=== PATIENT | female | born 1960 | race Caucasian/White ===

== ENCOUNTER → 2017-03-31 | Outpatient (CLI) | payer BC, OTHER ==
[2017-03-31 17:18] LABS: RED BLOOD COUNT 4.73 M/UL (4.00-5.10); WHITE BLOOD COUNT 6.9 K/UL (4.5-11.0)
[2017-03-31 17:45] LABS: BUN/CREATININE RATIO 19 (0-10)
== END ==
LOC: LAB 16:46
PROVIDERS: Nurse Practitioner Family
DX: Z01.812 Encounter for preprocedural laboratory examination (principal); M25.561 Pain in right knee; M25.562 Pain in left knee; E11.9 Type 2 diabetes mellitus without complications; E03.9 Hypothyroidism, unspecified; E55.9 Vitamin D deficiency, unspecified; M17.0 Bilateral primary osteoarthritis of knee
CPT/HCPCS: 73562; 80053; 84439; 84443; 85025

== ENCOUNTER → 2017-04-09 | Outpatient (CLI) | payer BC, OTHER | LOC: EXRD 13:00 | DX: Z51.11 Encounter for antineoplastic chemotherapy (principal); C50.419 Malignant neoplasm of upper-outer quadrant of unspecified female breast; R52 Pain, unspecified; M85.9 Disorder of bone density and structure, unspecified | CPT/HCPCS: 77080 ==

== ENCOUNTER → 2017-05-07 | Outpatient (CLI) | payer BC, OTHER | LOC: EMI 16:45 | DX: M17.0 Bilateral primary osteoarthritis of knee (principal); M25.561 Pain in right knee; M25.562 Pain in left knee; M95.8 Other specified acquired deformities of musculoskeletal system; M71.22 Synovial cyst of popliteal space [Baker], left knee | CPT/HCPCS: 73721 ==

== ENCOUNTER → 2017-08-03 | Outpatient (CLI) | payer BC ==
[2017-08-03 11:06] LABS: HEMOGLOBIN 13.3 gm/dl (12.3-15.3); RED BLOOD COUNT 4.86 M/UL (4.00-5.10); WHITE BLOOD COUNT 6.8 K/UL (4.5-11.0)
[2017-08-03 11:28] LABS: BUN/CREATININE RATIO 14 (0-10)
== END ==
LOC: LAB 10:16
PROVIDERS: Nurse Practitioner Family
DX: E11.9 Type 2 diabetes mellitus without complications (principal); E78.5 Hyperlipidemia, unspecified; E55.9 Vitamin D deficiency, unspecified
CPT/HCPCS: 80053; 80061; 82043; 82570; 84439; 84443; 85025

== ENCOUNTER → 2020-11-20 | Outpatient (CLI) | payer BC, OTHER ==
[~2020-11-20] MED LIST: ALBUTEROL1.25 MG/3 INH; ALLERGY RELIEF180 MG PO; ASPIR-LOW81 MG PO; BENTYL 20MG TAB20 MG PO; CATAPRES 0.1MG0.1 MG PO; CLONIDINE HCL0.1 MG PO; ECOTRIN81 MG PO; EXEMESTANE25 MG PO; FEOSOL325 MG PO; FLEXERIL 10 MG10 MG PO; FOSAMAX70 MG PO; GLUCOPHAGE500 MG PO; HYDROCHLOROTHIA25 MG PO; IMDUR ER TAB 3030 MG PO; K-DUR TAB 20 M20 MEQ PO; LEVOXYL112 MCG PO; LIPITOR TAB 1010 MG PO; MEDROL DOSEPAK 24 MG PO; MEDROL4 MG PO; NEURONTIN 300300 MG PO; NEXIUM40 MG PO; NITROSTAT0.4 MG SL; NORCO 7.5-3251 EACH PO; NORFLEX 100 MG100 MG PO; ONDANSETRON PO; OYSTER SHELL C1 EACH PO; PREDNISONE20 MG PO; PROAIR HFA8.5 GM INH; PROBIOTIC1 EAC3 PO; RELAFEN 750 MG750 MG PO; ROBAXIN-750750 MG PO; SINGULAIR10 MG PO; SYMBICORT 160-1 INHA INH; TENORMIN 50 MG50 MG PO; VITAMIN D250000 UNIT PO; Voltaren Gel 1% TOP; ZANAFLEX 4 MG TA4 MG PO
[2020-11-20 17:12] LABS: HEMOGLOBIN 12.4 gm/dl (12.3-15.3); RED BLOOD COUNT 4.59 M/UL (4.00-5.10); WHITE BLOOD COUNT 6.2 K/UL (4.5-11.0)
[2020-11-22 12:12] LABS: FRUCTOSAMINE 268 umol/L (0-285); PREALBUMIN 31 mg/dL (10-36)
== END ==
LOC: LAB 16:41
PROVIDERS: Nurse Practitioner Family
DX: Z01.812 Encounter for preprocedural laboratory examination (principal)
CPT/HCPCS: 36415; 80053; 82985; 83036; 84134; 85025; 85610; 85730

== ENCOUNTER → 2021-04-17 | Outpatient (CLI) | payer BC, OTHER | LOC: EXRD 13:05 | DX: R52 Pain, unspecified (principal); C50.411 Malignant neoplasm of upper-outer quadrant of right female breast | CPT/HCPCS: 77080 ==

== ENCOUNTER 2021-05-27 11:29 | Emergency (ER) | payer BC ==
[~2021-05-27 11:29] MED LIST changes: -MEDROL DOSEPAK 24 MG PO; -NORFLEX 100 MG100 MG PO; -Voltaren Gel 1% TOP
[2021-05-27] MEDS ORDERED: MEDROL DOSEPAK 24 MG PO (12:22)
[2021-05-27] MEDS ORDERED: Voltaren Gel 1% TOP (12:22)
[2021-05-27] MEDS ORDERED: NORFLEX 100 MG100 MG PO (12:24)
== END 2021-05-27 13:03 | disposition home or self-care (01) ==
LOC: ER1 11:29
DX: M54.42 Lumbago with sciatica, left side (principal); E78.5 Hyperlipidemia, unspecified; J45.909 Unspecified asthma, uncomplicated; I10 Essential (primary) hypertension; Z90.49 Acquired absence of other specified parts of digestive tract; Z88.1 Allergy status to other antibiotic agents; Z88.8 Allergy status to other drugs, medicaments and biological substances; Z91.013 Allergy to seafood
CPT/HCPCS: 96372; 99283; J2270; J2930

== ENCOUNTER → 2021-07-12 | Outpatient (CLI) | payer BC ==
[~2021-07-12] MED LIST changes: +MEDROL DOSEPAK 24 MG PO; +NORFLEX 100 MG100 MG PO; +Voltaren Gel 1% TOP
== END ==
LOC: EXRD 09:03
PROVIDERS: Nurse Practitioner Family
DX: M62.838 Other muscle spasm (principal); M25.551 Pain in right hip; M54.5 Low back pain; M47.816 Spondylosis without myelopathy or radiculopathy, lumbar region; M16.11 Unilateral primary osteoarthritis, right hip
CPT/HCPCS: 72100; 73502; 80048; 83735

== ENCOUNTER → 2021-07-27 | Outpatient (CLI) | payer BC | LOC: EMI 14:05 | DX: M51.36 Other intervertebral disc degeneration, lumbar region (principal); M51.37 Other intervertebral disc degeneration, lumbosacral region; M54.5 Low back pain; M54.31 Sciatica, right side; R10.31 Right lower quadrant pain | CPT/HCPCS: 72148 ==

== ENCOUNTER → 2021-08-25 | Outpatient (CLI) | payer BC ==
[2021-08-25 07:12] LABS: HEMOGLOBIN 12.8 gm/dl (12.3-15.3); RED BLOOD COUNT 4.64 M/UL (4.00-5.10); WHITE BLOOD COUNT 5.6 K/UL (4.5-11.0)
[2021-08-25 07:40] LABS: BUN/CREATININE RATIO 12 (0-10)
[2021-08-26 08:10] LABS: VITAMIN D, 25-HYDROXY 88.2 ng/mL (30.0-100.0)
== END ==
LOC: LAB 06:29
PROVIDERS: Nurse Practitioner Family
DX: D64.9 Anemia, unspecified (principal); E11.9 Type 2 diabetes mellitus without complications; E55.9 Vitamin D deficiency, unspecified
CPT/HCPCS: 36415; 80053; 80061; 82728; 83540; 83550; 84439; 84443; 84466; 85025

== ENCOUNTER 2021-08-28 06:29 | Emergency (ER) | payer BC ==
[2021-08-28] MEDS ORDERED: MEDROL DOSEPAK 24 MG PO (08:08)
[2021-08-28] MEDS ORDERED: CYCLOBENZAPRINE10 MG PO (08:08)
== END 2021-08-28 08:21 | disposition home or self-care (01) ==
LOC: ER1 06:29
DX: M54.41 Lumbago with sciatica, right side (principal); E11.9 Type 2 diabetes mellitus without complications; I10 Essential (primary) hypertension; Z90.49 Acquired absence of other specified parts of digestive tract; Z91.040 Latex allergy status; Z91.013 Allergy to seafood; Z88.8 Allergy status to other drugs, medicaments and biological substances
CPT/HCPCS: 96372; 99283; J1100; J1885; J2270

== ENCOUNTER 2021-12-05 07:24 | Emergency (ER) | payer OTHER ==
[~2021-12-05 07:24] MED LIST changes: +CYCLOBENZAPRINE10 MG PO
[2021-12-05] MEDS ORDERED: MOBIC15 MG PO (09:33)
== END 2021-12-05 09:40 | disposition home or self-care (01) ==
LOC: ER1 07:24
DX: S30.0XXA Contusion of lower back and pelvis, initial encounter (principal); S80.01XA Contusion of right knee, initial encounter; Z23 Encounter for immunization; Z85.3 Personal history of malignant neoplasm of breast; W00.9XXA Unspecified fall due to ice and snow, initial encounter
CPT/HCPCS: 72100; 73562; 90471; 90715; 99283

== ENCOUNTER 2022-01-09 06:30 | Emergency (ER) | payer BC ==
[~2022-01-09 06:30] MED LIST changes: +MOBIC15 MG PO
[2022-01-09] MEDS ORDERED: MEDROL DOSEPAK 24 MG PO (09:52)
== END 2022-01-09 09:30 | disposition home or self-care (01) ==
LOC: ER1 06:30
DX: G89.29 Other chronic pain (principal); M54.50 Low back pain, unspecified; Z88.2 Allergy status to sulfonamides; Z88.8 Allergy status to other drugs, medicaments and biological substances; Z91.013 Allergy to seafood
CPT/HCPCS: 96372; 99283; J1100; J2270

== ENCOUNTER → 2022-04-07 | Outpatient (CLI) | payer BC ==
[2022-04-07 11:57] LABS: BUN/CREATININE RATIO 14 (0-10)
== END ==
LOC: LAB 11:09
PROVIDERS: Nurse Practitioner Family
DX: E11.9 Type 2 diabetes mellitus without complications (principal); E03.9 Hypothyroidism, unspecified; E55.9 Vitamin D deficiency, unspecified
CPT/HCPCS: 36415; 80053; 83036; 84439; 84443

== ENCOUNTER → 2022-04-08 | Outpatient (CLI) | payer BC | LOC: EXRD 09:31 | DX: M79.671 Pain in right foot (principal) | CPT/HCPCS: 73630; 73650 ==

== ENCOUNTER 2022-05-09 14:37 | Emergency (ER) | payer BC | END 2022-05-09 16:35 | disposition home or self-care (01) | LOC: ER1 14:37 | DX: G89.29 Other chronic pain (principal); M54.50 Low back pain, unspecified | CPT/HCPCS: 96372; 99283; J1100; J2270 ==